=== PATIENT | male | born 2000 | race African-American/Black ===

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

== ENCOUNTER 2020-07-16 22:39 | Emergency (ER) | payer SELFPAY ==
[~2020-07-16] VITALS: Ht 190.5 cm; Wt 90.9 kg
[~2020-07-16 22:39] MED LIST: PREDNISONE20 MG PO
[2020-07-16 22:56] VITALS: TEMP 97.7
[2020-07-16] MEDS ORDERED: PREDNISONE20 MG PO (23:04)
[2020-07-16 23:20] VITALS: BP 130/68; PULSE 80
== END 2020-07-16 23:40 | disposition home or self-care (01) ==
LOC: COL.ER 22:39
DX: L50.9 Urticaria, unspecified (principal); J45.909 Unspecified asthma, uncomplicated; Z79.52 Long term (current) use of systemic steroids
CPT/HCPCS: J7512